=== PATIENT | female | born 1970 | race African-American/Black ===

== ENCOUNTER 2021-04-24 10:48 | Inpatient (IN) | payer SELFPAY ==
[~2021-04-24] VITALS: Ht 170.2 cm; Wt 128.0 kg
--- NOTE | 2021-04-24 11:53 | PHYS DOC ---
Past Medical History Past Medical History: High Cholesterol, Hypertension, Hypothyroid Smoking Status: Current Every Day Smoker Alcohol Use: Occasionally General Adult EDM: Chief Complaint: WEAKNESS/GENERALIZED HPI: HPI: Patient is a 50 year old female with history of HTN, HLD, hypothyroidism who presents with left-sided weakness. LKW 10:20 AM today. 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 Denies headache. Denies history of similar episodes. Denies chest pain. No difficulty with speech. No blood thinning medications. Review of Systems: Review of Systems: Full ROS not obtained secondary to time intensive nature of stroke work-up Heart Score: C/O Chest Pain: No Current Medications: Current Medications Medications (Trade) Dose Ordered Sig/Volodymyr Start Time Stop Time Status Last Admin Dose Admin Sodium Chloride 1,000 ml @ 1,000 mls/hr Q1H 04/24/21 12:00 04/24/21 12:59 Allergies: Allergies: Allergies Coded Allergies Type Severity Reaction Last Updated Verified No Known Drug Allergies 04/24/21 No Physical Exam: PE: Constitutional: Well developed, well nourished, no acute distress, non-toxic appearance. [] HENT: Normocephalic, atraumatic, bilateral external ears normal, oropharynx moist, no oral exudates, nose normal. [] Eyes: PERRLA, EOMI, conjunctiva normal, no discharge. [] Neck: Normal range of motion, no tenderness, supple, no stridor. [] Cardiovascular:Heart rate regular rhythm, no murmur [] Lungs & Thorax: Bilateral breath sounds clear to auscultation [] Abdomen: Bowel sounds normal, soft, no tenderness, no masses, no pulsatile mass es. [] Skin: Warm, dry, no erythema, no rash. [] Back: No tenderness, no CVA tenderness. [] Extremities: No tenderness, no cyanosis, no clubbing, ROM intact, no edema. [] Neurologic: Alert, oriented to person, place, time. Answers questions appropriately. Face symmetric. EOMI, visual crum intact No upper extremity drift Left lower extremity drift but does not hit bed No right lower extremity drift No ataxia No sensory deficit No aphasia or dysarthria No inattention NIH =1 EKG: EKG: [] Sinus rhythm. Rate 68. Left axis deviation. No acute ischemic changes Radiology/Procedures: Radiology/Procedures: [] Impression: [facility] [address] [place] [address] IMAGING REPORT Signed PATIENT: ASHWIN ESTEBAN ACCOUNT: [id number] : 1970 LOCATION: ER AGE: 50 SEX: F EXAM STATUS: PRE ER ORD. PHYSICIAN: JAZZY JAVIER MD REASON: LEFT SIDED WEAKNESS PROCEDURE: CT ANGIOGRAPHY HEAD AND NECK CLINICAL HISTORY: Reason: LEFT SIDED WEAKNESS / Spl. Instructions: / History: COMPARISON: None available. TECHNIQUE: CT angiogram of the head and neck was performed following the administration of IV contrast. Multiplanar reconstructed images were obtained including 3D reconstructed images performed on an independent work station. S tenosis if present in the carotid arteries were measured using NASCET criteria. PQRS compliance statement - One or more of the following individualized dose reduction techniques were utilized for this study: 1. Automated exposure control 2. Adjustment of the mA and/or kV according to patient size 3. Use of iterative reconstruction technique FINDINGS: Suboptimal contrast bolus resulting in suboptimal opacification of the distal cerebral arteries CTA of the intracranial circulation reveals normal appearing distal internal carotid arteries including the distal cervical, petrous, cavernous and supraclinoid portions. The anterior cerebral arteries are without evidence of stenosis or occlusion. The middle cerebral arteries without evidence of stenosis or occlusion. However the M2 branches are not well seen bilaterally and symmetric appearance, likely related to contrast bolus. The left DIRECTOR TALENT ACQUISITION is patent without evidence for stenosis or occlusion. There is origin of the right DIRECTOR TALENT ACQUISITION. The vertebral basilar system is normal with no evidence of stenosis or occlusion. In the neck, the origins of the great vessels are unremarkable. The common carotid arteries, bilaterally are normal with no evidence of significant stenosis or occlusion. The internal carotid arteries are normal bilaterally with no evidence of stenosis. The vertebral arteries in the neck are well visualized bilaterally and unremarkable. 2 cm left thyroid nodule. IMPRESSION: 1. Suboptimal contrast bolus limits evaluation which results in suboptimal opacification of the distal cerebral arteries diffusely and symmetrically. Within these constraints no evidence for stenosis or occlusion of the intracranial cerebral arteries, proximally or high-grade stenosis or occlusion within the intracranial or extracranial carotid or vertebral arteries. 2. 2 cm left thyroid nodule can be further assessed by thyroid ultrasound. Findings discussed with Dr. Javier at 04/24/2021 12:09 PM. FOR INTERNAL CODING PURPOSES RESULT CODE: (C) Electronically signed by: Salvatore Montague MD (04/24/2021 12:23 PM) [id number] DICTATED and SIGNED BY: SALVATORE MONTAGUE MD DATE: 04/24/21 [id number] 0 [facility] [address] [place] [address] IMAGING REPORT Signed PATIENT: ASHWIN ESTEBAN ACCOUNT: [id number] : 1970 LOCATION: ER AGE: 50 SEX: F EXAM STATUS: PRE ER ORD. PHYSICIAN: JAZZY JAVIER MD REASON: LEFT SIDED WEAKNESS PROCEDURE: CT CODE STROKE HEAD WO EXAM: CT Head without IV contrast CLINICAL HISTORY: Reason: LEFT SIDED WEAKNESS / Spl. Instructions: / History: COMPARISON: None. TECHNIQUE: Routine CT of the head without contrast. PQRS compliance statement - One or more of the following individualized dose reduction techniques were utilized for this study: 1. Automated exposure control 2. Adjustment of the mA and/or kV according to patient size 3. Use of iterative reconstruction technique FINDINGS: There is no evidence of hemorrhage, mass or extra-axial fluid collection. Li-white differentiation is maintained with no evidence of edema. There is no mass effect or shift of the intracranial structures. The ventricles, basilar cisterns and cortical sulci are normal in size and configuration for the patients stated age. The cerebellum and brainstem are unremarkable. The calvarium demonstrates no evidence of fracture or focal lesion. There is normal aeration of the visualized paranasal sinuses and mastoid air cells. The visualized portions of the orbits are normal. IMPRESSION: No evidence for acute intracranial process. Findings discussed with Dr. Javier at 04/24/2021 12:03 PM. FOR INTERNAL CODING PURPOSES RESULT CODE: (C) Electronically signed by: Salvatore Montague MD (04/24/2021 12:08 PM) [id number] DICTATED and SIGNED BY: SALVATORE MONTAGUE MD DATE: 04/24/21 [id number] 0 Course & Med Decision Making: Course & Med Decision Making Pertinent Labs and Imaging studies reviewed. (See chart for details) Patient is a 50-year-old female with history of HTN, HLD who presents with left- sided weakness and presyncope. NIH = 1 on arrival with isolated left lower extremity drift. LKW was initially thought to be 10:20 AM today, so code stroke was activated. Upon further history, patient states that she has had intermittent/stuttering symptoms over the past several weeks of left-sided weakness and numbness. Therefore we will not be a TPA candidate. CT head and CT angio head and neck without acute process. Thyroid nodule was incidentally noted. We will give a full dose aspirin and admit to telemetry with neurology consultation. [address] Disclaimer: Draggavi Disclaimer: This electronic medical record was generated, in whole or in part, using a voice recognition dictation system. Departure Departure Impression: Primary Impression: Left-sided weakness Disposition: ADMITTED INPATIENT Admitting Physician: SAMARA Condition: STABLE NIHSS Stroke Scale Level of Consciousness: 0 Level of Conscious Questions: 0 Level of Conscious Commands: 0 Best Gaze: 0 Visual: 0 Facial Palsy: 0 Left Arm Motor: 0 Right Arm Motor: 0 Left leg Motor: 1 Right Leg Motor: 0 Limb Ataxia: 0 Sensory: 0 Language: 0 Dysarthria: 0 Extinct, Inattent, (Neglect): 0 JAZZY JAVIER MD Apr 24, 2021 11:53
[2021-04-24] MEDS ORDERED: IV NORMAL SALINE 1000ML BAG 1,000 ML IV SCH (12:00)
--- NOTE | 2021-04-24 12:10 | RAD ---
EXAM: CT Head without IV contrast CLINICAL HISTORY: Reason: LEFT SIDED WEAKNESS / Spl. Instructions: / History: COMPARISON: None. TECHNIQUE: Routine CT of the head without contrast. PQRS compliance statement - One or more of the following individualized dose reduction techniques wer e utilized for this study: 1. Automated exposure control 2. Adjustment of the mA and/or kV according to patient size 3. Use of iterative reconstruction technique FINDINGS: There is no evidence of hemorrhage, mass or extra-axial fluid collection. Li-white differentiation is maintained with no evidence of edema. There is no mass effect or shift of the intracranial structures. The ventricles, basilar cisterns and cortical sulci are normal in size and configuration for the cholo ents stated age. The cerebellum and brainstem are unremarkable. The calvarium demonstrates no evidence of fracture or focal lesion. There is normal aeration of the visualized paranasal sinuses and mastoid air cells. The visualized portions of the orbits are normal. IMPRESSION: No evidence for acute intracranial process. Findings discussed with Dr. Khan at 04/24/2021 12:03 PM. FOR INTERNAL CODING PURPOSES RESULT CODE: (C) Electronically signed by: Salvatore Chairez MD (04/24/2021 12:08 PM) [id number]
[2021-04-24] MEDS ORDERED: CONTRAST GIVEN. MC PRN (12:15)
[2021-04-24] MEDS ORDERED: IOHEXOL 300 MG/ML 100ML VIAL. IV ONE (12:15)
--- NOTE | 2021-04-24 12:26 | RAD ---
CLINICAL HISTORY: Reason: LEFT SIDED WEAKNESS / Spl. Instructions: / History: COMPARISON: None available. TECHNIQUE: CT angiogram of the head and neck was performed following the administration of IV contras t. Multiplanar reconstructed images were obtained including 3D reconstructed images performed on an [employer] work station. Stenosis if present in the carotid arteries were measured using NASCET crite yonas. PQRS compliance statement - One or more of the following individualized dose reduction techniques wer e utilized for this study: 1. Automated exposure control 2. Adjustment of the mA and/or kV according to patient size 3. Use of iterative reconstruction technique FINDINGS: Suboptimal contrast bolus resulting in suboptimal opacification of the distal cerebral arteries CTA of the intracranial circulation reveals normal appearing distal internal carotid arteries includi ng the distal cervical, petrous, cavernous and supraclinoid portions. The anterior cerebral arteries are without evidence of stenosis or occlusion. The middle cerebral arteries without evidence of stenosis or occlusion. However the M2 branches are not well seen bilaterally and symmetric appearance, likely related to contrast bolus. The left PASTORAL COUNSELOR is patent without evidence for stenosis or occlusion. There is origin of the right PASTORAL COUNSELOR. The vertebral basilar system is normal with no evidence of stenosis or occlusion. In the neck, the origins of the great vessels are unremarkable. The common carotid arteries, bilaterally are normal with no evidence of significant stenosis or occlu jacinta. The internal carotid arteries are normal bilaterally with no evidence of stenosis. The vertebral arteries in the neck are well visualized bilaterally and unremarkable. 2 cm left thyroid nodule. IMPRESSION: 1. Suboptimal contrast bolus limits evaluation which results in suboptimal opacification of the dist al cerebral arteries diffusely and symmetrically. Within these constraints no evidence for stenosis o r occlusion of the intracranial cerebral arteries, proximally or high-grade stenosis or occlusion wit hin the intracranial or extracranial carotid or vertebral arteries. 2. 2 cm left thyroid nodule can be further assessed by thyroid ultrasound. Findings discussed with Dr. Khan at 04/24/2021 12:09 PM. FOR INTERNAL CODING PURPOSES RESULT CODE: (C) Electronically signed by: Salvatore Chairez MD (04/24/2021 12:23 PM) [id number]
[2021-04-24 12:37] LABS: BASO # 0.1 x10^3/uL (0.0-0.2); BASO % 1 % (0-3); EOS # 0.3 x10^3/uL (0.0-0.7); EOS % 3 % (0-3); HEMATOCRIT 35.9 % (36.0-47.0); HEMOGLOBIN 12.3 g/dL (12.0-15.5); LYMPH # 3.6 x10^3/uL (1.0-4.8); LYMPH % 42 % (24-48); MEAN CORPUSCULAR HEMOGLOBIN 33 pg (25-35); MEAN CORPUSCULAR HGB CONC 34 g/dL (31-37); MEAN CORPUSCULAR VOLUME 95 fL (79-100); MONO # 0.5 x10^3/uL (0.0-1.1); MONO % 6 % (0-9); NEUT # 4.1 x10^3/uL (1.8-7.7); NEUT % 48 % (31-73); PLATELET COUNT 213 x10^3/uL (140-400); RED BLOOD COUNT 3.79 x10^6/uL (3.50-5.40); RED CELL DISTRIBUTION WIDTH 13.4 % (11.5-14.5); WHITE BLOOD COUNT 8.5 x10^3/uL (4.0-11.0)
[2021-04-24 12:48] LABS: PROTHROMBIN TIME PATIENT 12.1 SEC (11.7-14.0)
[2021-04-24 12:49] LABS: CALCIUM 8.5 mg/dL (8.5-10.1); CREATININE 0.9 mg/dL (0.6-1.0); GFR 65.8; POTASSIUM 3.7 mmol/L (3.5-5.1)
[2021-04-24] MEDS ORDERED: ASPIRIN 325 MG TABLET PO ONE (13:00)
--- NOTE | 2021-04-24 13:06 | EKG ---
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
--- NOTE | 2021-04-24 14:56 | RAD ---
EXAMINATION: Magnetic resonance imaging (MRI) of the brain and brainstem without contrast 04/24/2021 1 :30 PM HISTORY: Left-sided weakness TECHNIQUE: Multiplanar multi-weighted MRI of the brain and brainstem was performed without intravenou s contrast using the general brain protocol. COMPARISON: None available. FINDINGS: The scalp and calvarium are normal. The superior sagittal sinus demonstrates normal venous flow. The corpus callosum is normal in shape and signal intensity. The posterior fossa is unremarkable. The p ituitary and sella are normal. The brainstem and craniocervical junction are unremarkable. Diffusion weighted images reveal no hyperintensities to suggest acute cerebral infarction. The suscep tibility weighted sequences reveal no evidence of acute or chronic hemorrhage. The ventricles are nor mal in size and position without evidence of hydrocephalus. The paranasal sinuses are normal. Adenoids are prominent measuring to 1.7 cm in AP dimension. The vis ualized portions of the mastoids are unremarkable. The orbits appear normal. Normal flow voids are d emonstrated in the carotid arteries and basilar artery. IMPRESSION: 1. No evidence for acute or subacute ischemia. 2. Adenoids are prominent measuring 1.7 cm in AP dimension. Electronically signed by: Leela Contreras MD (04/24/2021 2:54 PM) [id number]
[2021-04-24 16:15] VITALS: BP 160/84
--- NOTE | 2021-04-24 17:50 | HP ---
DATE OF SERVICE: 04/24/2021 ADMIT DATE: 04/24/2021 CHIEF COMPLAINT: Left-sided weakness. HISTORY OF PRESENT ILLNESS: The patient is a pleasant 50-year-old female who presented with left-sided weakness that has been occurring for several days. 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 She has also been having some other neurologic changes for several weeks. Clinically, it seems like she has probably had a stroke. I discussed the case with the ER physician. We are going to admit the patient and consult Neurology. PAST MEDICAL HISTORY: Hypertension, hyperlipidemia, hypothyroidism, tobacco abuse. ALLERGIES: None. FAMILY HISTORY: Diabetes. SOCIAL HISTORY: She does not take drugs. She does not drink. She does smoke. MEDICATIONS: Reviewed, please refer to the MRAD. REVIEW OF SYSTEMS: GENERAL: No history of weight change, weakness or fevers. SKIN: No bruising, hair changes or rashes. EYES: No blurred, double or loss of vision. NOSE AND THROAT: No history of nosebleeds, hoarseness or sore throat. HEART: No history of palpitations, chest pain or shortness of breath on exertion. LUNGS: Denies cough, hemoptysis, wheezing or shortness of breath. GASTROINTESTINAL: Denies changes in appetite, nausea, vomiting, diarrhea or constipation. GENITOURINARY: No history of frequency, urgency, hesitancy or nocturia. NEUROLOGIC: She complains of left-sided weakness. PSYCHIATRIC: No history of panic, anxiety or depression. ENDOCRINE: No history of heat or cold intolerance, polyuria or polydipsia. EXTREMITIES: Denies muscle weakness, joint pain, pain on walking or stiffness. . PHYSICAL EXAMINATION: VITALS: Within normal limits and are stable. GENERAL: No apparent distress. Alert and oriented. HEENT: Normal cephalic atraumatic, external auditory canals are patent. Eyes: Extraocular muscles are intact, pupils are equally round and reactive to light and accommodation. MUSCULOSKELETAL: Well developed, well nourished, good range of motion. ENDOCRINE: No thyromegaly was palpated. LYMPHATICS: No cervical chain or axillary nodes were noted. HEMATOPOIETIC: No bruising. NECK: Supple, no JVD, no thyromegaly was noted. LUNGS: Clear to auscultation in all lung crum without rhonchi or wheezing. HEART: RRR, S1, S2 present. Peripheral pulses intact, no obvious murmurs were noted. ABDOMEN: Soft, nontender. Positive bowel sounds, no organomegaly, normal bowel sounds. EXTREMITIES: Without any cyanosis, clubbing, or edema. Pedal pulses intact, Homans sign is negative. NEUROLOGIC: She has decreased strength on the left. PSYCHIATRIC: Normal affect, normal mood. Stable. SKIN: No ulcerations or rashes, good skin turgor, no jaundice. VASCULAR: Good capillary refill, neurovascular bundle appears to be intact. LABORATORY DATA: CT of the head is negative. White count is 8. ASSESSMENT AND PLAN: Stroke symptoms. The patient has been admitted. We will consult Neurology. Stroke protocol. Home meds. Deep venous thrombosis prophylaxis. Full code. PT, OT. KEMAL/NYLA DR: Edvin TID: [id number]
[2021-04-24 19:35] VITALS: BP 156/88
[2021-04-24 23:40] VITALS: BP 179/98
[2021-04-25 03:10] VITALS: BP 148/73
[2021-04-25 04:57] LABS: CHOLESTEROL/HDL RATIO 3.1
[2021-04-25 06:42] VITALS: BP 183/103
[2021-04-25] MEDS ORDERED: LOSA100T14 PO (07:43)
[2021-04-25] MEDS ORDERED: MULT-245 PO (07:43)
[2021-04-25] MEDS ORDERED: AMLO5TAB4 PO (07:43)
[2021-04-25] MEDS ORDERED: ATOR10TA PO (07:43)
[2021-04-25] MEDS ORDERED: LEVO50TA PO (07:43)
[2021-04-25] MEDS ORDERED: ASPIRIN CHEWABLE 81 MG TABLET. PO SCH (08:00)
[2021-04-25] MEDS ORDERED: MULTIVITAMIN with MINERAL TABLET. PO SCH (09:00)
[2021-04-25] MEDS ORDERED: LOSARTAN POTASSIUM 50 MG TABLET. PO SCH (09:00)
[2021-04-25] MEDS ORDERED: ATORVASTATIN CALCIUM 20 MG TABLET PO SCH (09:00)
[2021-04-25] MEDS ORDERED: LEVOTHYROXINE 50 MCG TABLET PO SCH (09:00)
[2021-04-25 11:00] VITALS: BP 143/91
[2021-04-25] MEDS ORDERED: MECLIZINE HCL 12.5 MG TABLET. PO ONE (13:15)
[2021-04-25 15:00] VITALS: BP 148/85
--- NOTE | 2021-04-25 16:14 | PDOC2 ---
CONSULT Date of Consult Date of Consult DATE: 04/25/21 TIME: 16:14 Reason for Consult Reason for Consult: left-sided numbness Identification/Chief Complaint Chief Complaint left-sided numbness History of Present Illness Reason for Visit: This patient is 50-year-old woman who presented to emergency room with episode of feeling lightheaded patient was at [facility]. 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 Patient felt lightheaded, patient was having some episode of left-sided numbness patient denied any difficulty speaking tingling numbness on the face. Patient denied any focal extremity weakness. Patient had improvement in symptoms. Patient denied any previous history of CVA. Patient currently denies any complaint of headache nausea vomiting chest pain. Patient had CT scan done brain did not show any evidence of acute intracranial evidence of acute hemorrhage or mass. Patient had a CTA head and neck did not show any evidence of large vessel occlusion or acute intracranial etiology. Current Problem List Problem List Problems Medical Problems: (1) Left-sided weakness Status: Acute Current Medications Current Medications Current Medications Sodium Chloride 1,000 ml @ 1,000 mls/hr Q1H IV Last administered on 04/24/21at 12:21; Start 04/24/21 at 12:00; Stop 04/24/21 at 12:59; Status DC Iohexol (Omnipaque 300 Mg/ml) 100 ml 1X ONCE IV Last administered on 04/24/21at 12:17; Start 04/24/21 at 12:15; Stop 04/24/21 at 12:16; Status DC Info (CONTRAST GIVEN -- Rx MONITORING) 1 each PRN DAILY PRN MC SEE COMMENTS; Start 04/24/21 at 12:15; Stop 04/26/21 at 12:14 Aspirin (Dash Aspirin) 325 mg 1X ONCE PO Last administered on 04/24/21at 13:18; Start 04/24/21 at 13:00; Stop 04/24/21 at 13:01; Status DC Lorazepam (Ativan Inj) 1 mg 1X ONCE IVP Last administered on 04/24/21at 13:42; Start 04/24/21 at 13:45; Stop 04/24/21 at 13:46; Status DC Aspirin (Aspirin Chewable) 81 mg DAILYWBKFT PO Last administered on 04/25/21at 09:15; Start 04/25/21 at 08:00 Atorvastatin Calcium (Lipitor) 20 mg DAILY PO ; Start 04/25/21 at 09:00; Stop 04/25/21 at 08:22; Status DC Amlodipine Besylate (Norvasc) 5 mg DAILY08 PO Last administered on 04/25/21at 09:14; Start 04/25/21 at 09:00 Atorvastatin Calcium (Lipitor) 10 mg QHS PO ; Start 04/25/21 at 21:00 Levothyroxine Sodium (Synthroid) 50 mcg DAILYAC PO Last administered on 04/25/21at 09:14; Start 04/25/21 at 09:00 Losartan Potassium (Cozaar) 100 mg DAILY PO Last administered on 04/25/21at 09:14; Start 04/25/21 at 09:00 Multivitamins (Thera M Plus) 1 tab DAILY PO Last administered on 04/25/21at 09:14; Start 04/25/21 at 09:00 Meclizine HCl (Antivert) 25 mg 1X ONCE PO Last administered on 04/25/21at 15:19; Start 04/25/21 at 13:15; Stop 04/25/21 at 13:16; Status DC Active Scripts Active Reported Multi Vitamin Daily (Multivitamin) 1 Each Tablet 1 Tab PO DAILY 30 Days Lipitor (Atorvastatin Calcium) 10 Mg Tablet 10 Mg PO DAILY08 Synthroid (Levothyroxine Sodium) 50 Mcg Tablet 50 Mcg PO DAILYAC Norvasc (Amlodipine Besylate) 5 Mg Tablet 5 Mg PO DAILY08 Losartan Potassium 100 Mg Tablet 100 Mg PO DAILY08 Allergies Allergies: Coded Allergies: No Known Drug Allergies (Unverified , 04/24/21) ROS Review of System A 10-point review of systems was obtained. Other than the history of present illness the remainder of the review of systems is negative. Physical Exam Physical Exam General: No acute distress. Eye: Pupils are equal, round and reactive to light HENT: Normocephalic. Neck: Supple, Non-tender, No carotid bruit, No jugular venous distention Respiratory: Lungs are clear to auscultation, Respirations are non-labored Cardiovascular: Normal rate, Regular rhythm, No murmur, Good pulses equal in all extremities Gastrointestinal: Soft, Non-tender, Non-distended, Normal bowel sounds. Neurological Exam: Mental status: Alert,oriented, able to follow simple commands. Speech: no dysarthria Cranial Nerves: pupils round and reactive to light, extraocular movements intact normal facial sensation in ophthalmic, maxillary, and mandibular dermatomes, muscles of mastication 5/5 bilaterally no facial droop, eye closure and eyebrow elevation symmetric symmetric palatal elevation tongue midline, no fasciculations Motor: No resting, tremor. Good strength, normal coordination. Sensory: Sensation was intact to light touch, pain, in upper and lower extremities. Reflexes: 1-2/4. Toes were downgoing. Gait: in bed. Vitals VITALS Vital Signs Date Time Temp Pulse Resp B/P (MAP) Pulse Ox O2 Delivery O2 Flow Rate FiO2 04/25/21 15:00 97.8 102 18 148/85 (106) 98 Nasal Cannula 97.8 Labs Labs Laboratory Tests Test 04/24/21 11:20 04/24/21 11:51 04/25/21 04:00 White Blood Count 8.5 x10^3/uL (4.0-11.0) Red Blood Count 3.79 x10^6/uL (3.50-5.40) Hemoglobin 12.3 g/dL (12.0-15.5) Hematocrit 35.9 % (36.0-47.0) Mean Corpuscular Volume 95 fL (79-100) Mean Corpuscular Hemoglobin 33 pg (25-35) Mean Corpuscular Hemoglobin Concent 34 g/dL (31-37) Red Cell Distribution Width 13.4 % (11.5-14.5) Platelet Count 213 x10^3/uL (140-400) Neutrophils (%) (Auto) 48 % (31-73) Lymphocytes (%) (Auto) 42 % (24-48) Monocytes (%) (Auto) 6 % (0-9) Eosinophils (%) (Auto) 3 % (0-3) Basophils (%) (Auto) 1 % (0-3) Neutrophils # (Auto) 4.1 x10^3/uL (1.8-7.7) Lymphocytes # (Auto) 3.6 x10^3/uL (1.0-4.8) Monocytes # (Auto) 0.5 x10^3/uL (0.0-1.1) Eosinophils # (Auto) 0.3 x10^3/uL (0.0-0.7) Basophils # (Auto) 0.1 x10^3/uL (0.0-0.2) Prothrombin Time 12.1 SEC (11.7-14.0) Prothromb Time International Ratio 0.9 (0.8-1.1) Activated Partial Thromboplast Time 24 SEC (24-38) Sodium Level 147 mmol/L (136-145) Potassium Level 3.7 mmol/L (3.5-5.1) Chloride Level 105 mmol/L (98-107) Carbon Dioxide Level 30 mmol/L (21-32) Anion Gap 12 (6-14) Blood Urea Nitrogen 12 mg/dL (7-20) Creatinine 0.9 mg/dL (0.6-1.0) Estimated GFR (Cockcroft-Gault) 65.8 Glucose Level 106 mg/dL (70-99) Calcium Level 8.5 mg/dL (8.5-10.1) Troponin I High Sensitivity 6 ng/L (4-50) Glucose (Fingerstick) 80 mg/dL (70-99) Triglycerides Level 57 mg/dL (0-150) Cholesterol Level 159 mg/dL (0-200) LDL Cholesterol, Calculated 97 mg/dL (0-100) VLDL Cholesterol, Calculated 11 mg/dL (0-40) Non-HDL Cholesterol Calculated 108 mg/dL (0-129) HDL Cholesterol 51 mg/dL (40-60) Cholesterol/HDL Ratio 3.1 Laboratory Tests Test 04/25/21 04:00 Triglycerides Level 57 mg/dL (0-150) Cholesterol Level 159 mg/dL (0-200) LDL Cholesterol, Calculated 97 mg/dL (0-100) VLDL Cholesterol, Calculated 11 mg/dL (0-40) Non-HDL Cholesterol Calculated 108 mg/dL (0-129) HDL Cholesterol 51 mg/dL (40-60) Cholesterol/HDL Ratio 3.1 Assessment/Plan Assessment/Plan This patient is 50-year-old woman who presented to emergency room with episode of feeling lightheaded patient was at [facility]. . Patient felt lightheaded, patient was having some episode of left-sided numbness patient denied any difficulty speaking tingling numbness on the face. Patient denied any focal extremity weakness. Patient had improvement in symptoms. Patient denied any previous history of CVA. Patient currently denies any complaint of headache nausea vomiting chest pain. Patient had CT scan done brain did not show any evidence of acute intracranial evidence of acute hemorrhage or mass. Patient had a CTA head and neck did not show any evidence of large vessel occlusion or acute intracranial etiology. This patient is 50-year-old woman who presented to emergency room with episode of feeling lightheaded patient was at [facility]. Patient felt lightheaded, patient was having some episode of left-sided numbness patient denied any difficulty speaking tingling numbness on the face. With episode of lightheadedness, with possible TIA episode. Patient had improvement in symptoms. Patient had MRI brain done did not show any evidence of acute intra cranial evidence of acute hemorrhage or mass. No new CVA. Changes noted for chronic small vessel ischemic disease patient was started on aspirin for stroke prevention. Hyperlipidemia on statin. Patient was recommended to get 2D echo, further work-up. She wants to do further work-up as outpatient. Risk is benefit discussed at length. Patient had improvement in symptoms patient wants to go home she will follow up as outpatient plan discussed at length Thank you for allowing me to take part in this patient's care. Please not hesitate to contact me with questions. Transcribed using dictation device. The dictation could contain irregularities inherent in the voice to text conversion software, which may not be detected during the document review process. Please contact our office in case of any confusion or for any clarification, as needed. MAREK STOVER MD Apr 25, 2021 16:14
[2021-04-25] MEDS ORDERED: ASPI-630 PO (16:56)
--- NOTE | 2021-04-25 16:59 | PDOC3 ---
[facility]-Discharge Summary Date of Admission: Date of Admission: Apr 24, 2021 Date of Discharge: Date of Discharge: Apr 25, 2021 Admission Diagnosis: Problems: (1) Left-sided weakness Discharge Diagnosis: Discharge Diagnosis: Same Consults: Consults: Neuro Procedures: Procedures: Normal head imaging Hospital Course: Hospital Course: HISTORY OF PRESENT ILLNESS: The patient is a pleasant 50-year-old female who presented with left-sided weakness that has been occurring for several days. 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 She has also been having some other neurologic changes for several weeks. Clinically, it seems like she has probably had a stroke. I discussed the case with the ER physician. We are going to admit the patient and consult Neurology. 04/25 Patient evaluated examined at bedside. Resting reporting generally improved from last night. Okay to DC per neurology. Patient agreeable to DC and routine follow-up. Plan of care discussed with bedside RN. 34 minutes spent on the discharge of this patient. 21 minutes of advance care planning discussed with her as well. Disposition: Disposition/Orders: D/C to Home Activity: Activity: Resume previous activity Diet: Diet: Cardiac Medications: Home Meds Active Scripts Aspirin (ASPIRIN) 81 Mg Tab.chew, 81 MG PO DAILYWBKFT for cad for 60 Days, #60 T AB.CHEW Prov:BRISEYDA SHORT MD 04/25/21 Reported Medications Multivitamin (MULTI VITAMIN DAILY) 1 Each Tablet, 1 TAB PO DAILY for for 30 Days, #30 TAB 0 Refills 04/25/21 Atorvastatin Calcium (LIPITOR) 10 Mg Tablet, 10 MG PO DAILY08 for FOR CHOLESTEROL, #30 TAB 0 Refills 04/25/21 Levothyroxine Sodium (SYNTHROID) 50 Mcg Tablet, 50 MCG PO DAILYAC for THYROID SUPPLEMENT, #30 TAB 0 Refills 04/25/21 Amlodipine Besylate (NORVASC) 5 Mg Tablet, 5 MG PO DAILY08 for , TAB 04/25/21 Losartan Potassium (LOSARTAN POTASSIUM) 100 Mg Tablet, 100 MG PO DAILY08 for HYPERTENSION, TAB 04/25/21 Scheduled Amlodipine Besylate (Norvasc), 5 MG PO DAILY08, (Reported) Aspirin (Aspirin), 81 MG PO DAILYWBKFT Atorvastatin Calcium (Lipitor), 10 MG PO DAILY08, (Reported) Levothyroxine Sodium (Synthroid), 50 MCG PO DAILYAC, (Reported) Losartan Potassium (Losartan Potassium), 100 MG PO DAILY08, (Reported) Multivitamin (Multi Vitamin Daily), 1 TAB PO DAILY, (Reported) Justicifation of Admission Dx: Justifications for Admission: Justification of Admission Dx: Yes (stroke eval) BRISEYDA SHORT MD Apr 25, 2021 16:59
--- NOTE | 2021-04-25 17:42 | NUR ---
DISCHARGED PATIENT TO HOME. DISCHARGE INSTRUCTIONS GIVEN. PIV AND HEART MONITOR REMOVED. ESCORTED PATIENT OFF UNIT PER PATIENT AMBULATION INTO A PRIVATE VEHICLE.
[2021-04-25] MEDS ORDERED: ATORVASTATIN CALCIUM 10 MG TABLET. PO SCH (21:00)
[2021-04-27 14:44] LABS: HEMOGLOBIN A1C 5.6 % (4.8-5.6)
== END 2021-04-25 17:40 | disposition home or self-care (01) | DRG 948 ==
LOC: ER 10:48 → ED HOLD 12:50 → 6 SOUTH 14:17
PROVIDERS: ADMIT Internal Medicine; ATTEND Internal Medicine
DX: R53.1 Weakness (principal); E03.9 Hypothyroidism, unspecified; E04.1 Nontoxic single thyroid nodule; E78.00 Pure hypercholesterolemia, unspecified; E78.5 Hyperlipidemia, unspecified; F17.200 Nicotine dependence, unspecified, uncomplicated; I10 Essential (primary) hypertension; Z83.3 Family history of diabetes mellitus
CPT/HCPCS: 36415; 70450; 70496; 70498; 70551; 80048; 80061; 82306; 82607; 82962; 83036; 84484; 85025; 85610; 85730; 93005; 96374; J2060; J7030; Q9967; 97530-GP; 99285-25; G0378; J8597

== ENCOUNTER → 2021-05-14 | Outpatient (CLI) | payer BC ==
[2021-04-25 15:00] VITALS: BP 148/85
[~2021-05-14] MED LIST: AMLO5TAB4 PO; ASPI-630 PO; ATOR10TA PO; LEVO50TA PO; LOSA100T14 PO; MULT-245 PO
--- NOTE | 2021-05-14 15:57 | CARD ---
MR#: [id number] Date of Study: 05/14/2021 Ordering Physician: MIKA BARRETT, Referring Physician: MIKA BARRETT, Tech: Elina Greer, [facility] APPROVED REPORT EXAM: Two-dimensional and M-mode echocardiogram with Doppler and color Doppler. Other Information Quality : AverageHR: 82bpm INDICATION CVA/TIA Echo Enhancing Agent Indication: Rule Out Septal Defect Agent/Amount Used: Agitated Saline 10mL RISK FACTORS Hypertension Hyperlipidemia Smoking 2D DIMENSIONS RVDd3.2 (2.9-3.5cm)Left Atrium(2D)2.9 (1.6-4.0cm) IVSd1.1 (0.7-1.1cm)Aortic Root(2D)3.3 (2.0-3.7cm) LVDd4.4 (3.9-5.9cm)LVOT Diameter2.2 (1.8-2.4cm) PWd1.1 (0.7-1.1cm)LVDs3.0 (2.5-4.0cm) FS (%) 32.2 %SV54.2 ml Aortic Valve AoV Peak Gray.117.3cm/sAoV VTI24.6cm AO Peak GR.5.5mmHgLVOT Peak Gray.88.7cm/s LVOT VTI 18.54cmAO Mean GR.3mmHg OK (VMAX)2.28yn3SPS (VTI)2.80cm2 Mitral Valve MV E Rbalmoma07.3cm/sMV DECEL ETVL111wq MV A Vvbjyolt71.2cm/sMV E Mean Gr.2mmHg MV FPB75srK/A Ratio0.9 MVA (PHT)4.74cm2 TDI E/Lateral E'11.8E/Medial E'8.7 Pulmonary Valve PV Peak Dxasreob87.8cm/sPV Peak Grad.4mmHg Tricuspid Valve TR P. Aydcdrcm677gz/sRAP HRBGNTIT3zjWx TR Peak Gr.39enRcDBGP91cyKs Pulmonary Vein S1 Qebmjhka64.1cm/sD2 Ydkbebvl69.2cm/s PVa [id number] LEFT VENTRICLE The left ventricle is normal size. There is mild concentric left ventricular hypertrophy. The left ve ntricular systolic function is normal and the ejection fraction is within normal range. The Ejection Fraction is 55-60%. There is normal LV segmental wall motion. Transmitral Doppler flow pattern is Gra de II-pseudonormal filling dynamics. RIGHT VENTRICLE The right ventricle is normal size. There is normal right ventricular wall thickness. The right ventr icular systolic function is normal. ATRIA The left atrium size is normal. The right atrium size is normal. The interatrial septum is intact wit h no evidence for an atrial septal defect or patent foramen ovale as noted on 2-D or Doppler imaging. Bubble study is negative on a technically difficult study. AORTIC VALVE The aortic valve is not well visualized. Doppler and Color Flow revealed no significant aortic regurg itation. Calculated aortic valve area is 2.81 cm2 with maximum pressure gradient of 7 mmHg and mean p ressure gradient of 3 mmHg. There is no significant aortic valvular stenosis. MITRAL VALVE The mitral valve is normal in structure and function. There is no evidence of mitral valve prolapse. There is no mitral valve stenosis. Doppler and Color-flow revealed trace mitral regurgitation. TRICUSPID VALVE The tricuspid valve is normal in structure and function. Doppler and Color Flow revealed trace tricus pid regurgitation with an estimated PAP of 38 mmHg. There is no tricuspid valve stenosis. PULMONIC VALVE The pulmonic valve is not well visualized. Doppler and Color Flow revealed no pulmonic valvular regur gitation. GREAT VESSELS The aortic root is normal in size. The IVC is normal in size and collapses >50% with inspiration. PERICARDIAL EFFUSION There is no evidence of significant pericardial effusion. Critical Notification Critical Value: No <Conclusion> The left ventricle is normal size. The left ventricular systolic function is normal and the ejection fraction is within normal range. The Ejection Fraction is 55-60%. There is normal LV segmental wall motion. There is mild concentric left ventricular hypertrophy. The interatrial septum is intact with no evidence for an atrial septal defect or patent foramen ovale as noted on 2-D or Doppler imaging. Bubble study is negative on a technically difficult study. Doppler and Color Flow revealed no significant aortic regurgitation. There is no significant aortic valvular stenosis. Doppler and Color-flow revealed trace mitral regurgitation. Doppler and Color Flow revealed trace tricuspid regurgitation with an estimated PAP of 38 mmHg. Signed by : Peterson Mistry MD Electronically Approved : 05/14/2021 15:57:34
== END ==
LOC: ECHO 08:44
PROVIDERS: ATTEND Internal Medicine
DX: I51.7 Cardiomegaly (principal); G45.9 Transient cerebral ischemic attack, unspecified
CPT/HCPCS: 93306